=== PATIENT | male | born 1950 | race Caucasian/White ===

== ENCOUNTER 2023-11-28 15:20 | Emergency (ER) | payer BC, OTHER ==
[~2023-11-28] VITALS: Ht 175.3 cm; Wt 83.0 kg
[~2023-11-28 15:20] MED LIST: PRO20 PO
[2023-11-28 15:50] VITALS: BP_SYST 145; PULSE 71; RESP 18; TEMP 98.6; O2SAT 95
[2023-11-28] MEDS ORDERED: IBUP-1971 PO (17:14)
[2023-11-28] MEDS ORDERED: IBUP-1969 PO (17:14)
[2023-11-28] MEDS ORDERED: HYDR-3927 PO (17:14)
[2023-11-28 17:29] VITALS: BP_SYST 142; PULSE 74; RESP 16; TEMP 98.6; O2SAT 95
== END 2023-11-28 17:30 | disposition home or self-care (01) ==
LOC: SED 15:20
DX: S43.491A Other sprain of right shoulder joint, initial encounter (principal); M79.601 Pain in right arm; F41.9 Anxiety disorder, unspecified; Z79.899 Other long term (current) drug therapy; W01.0XXA Fall on same level from slipping, tripping and stumbling without subsequent striking against object, initial encounter; Y93.89 Activity, other specified; Y92.89 Other specified places as the place of occurrence of the external cause; Y99.8 Other external cause status
CPT/HCPCS: 73030; 73060; 99284